=== PATIENT | female | born 1980 ===

== ENCOUNTER 2016-10-21 16:35 | Emergency (ER) | payer OTHER ==
[2016-10-21 17:00] VITALS: BP 105/66; PULSE 74; RESP 18; TEMP 98.2; O2SAT 99
--- NOTE | 2016-10-21 17:59 | ED PDOC ---
Lower Extremity Pain/Injury Time Seen by Provider: 10/21/16 17:19 Chief Complaint (Nursing): Lower Extremity Problem/Injury Chief Complaint (Provider): foot pain History Per: Patient History/Exam Limitations: no limitations Additional Complaint(s): 35yo F in ED for eval of foot pain (left side) x 5 days persistent without known acute injury made worse with walking and now progressing to heel with pins and needles. no swelling no skin break no calf pain. - Ankle/Foot Feet: 1 - foot pain Past Medical History Reviewed: Historical Data, Nursing Documentation, Vital Signs Vital Signs: Last Vital Signs Temp 98.2 F 10/21/16 16:57 Pulse 74 10/21/16 16:57 Resp 18 10/21/16 16:57 BP 105/66 10/21/16 16:57 Pulse Ox 99 10/21/16 16:57 - Medical History PMH: Asthma, Fibromyalgia, Kidney Stones, Chronic Kidney Disease - Surgical History Surgical History: Appendectomy - Family History Family History: States: Unknown Family Hx - Immunization History Hx Tetanus Toxoid Vaccination: Yes Hx Influenza Vaccination: No Hx Pneumococcal Vaccination: No - Home Medications Home Medications: Ambulatory Orders Medication Instructions Recorded Bacitracin Ointment [Bacitracin] 30 gm TOP BID #1 tube 11/21/15 Ciprofloxacin [Cipro] 1 tab PO BID #14 tab 11/21/15 - Allergies Allergies/Adverse Reactions: Allergies Allergy/AdvReac Type Severity Reaction Status Date / Time amoxil Allergy URTICARIA Uncoded 11/21/15 01:45 pcn Allergy URTICARIA Uncoded 11/21/15 01:45 Review of Systems ROS Statement: Except As Marked, All Systems Reviewed And Found Negative Musculoskeletal: Positive for: Foot Pain Physical Exam - Reviewed Nursing Documentation Reviewed: Yes Vital Signs Reviewed: Yes - Physical Exam Appears: Positive for: Well, Non-toxic, No Acute Distress Head Exam: Positive for: ATRAUMATIC, NORMAL INSPECTION, NORMOCEPHALIC Cardiovascular/Chest: Positive for: Regular Rate, Rhythm Respiratory: Positive for: CNT, Normal Breath Sounds Extremity: Positive for: Other (left foot: pain to plantar aspect of foot no swelling neurovasc intact no calf pain. ) Neurologic/Psych: Positive for: Alert, Oriented - ECG O2 Sat by Pulse Oximetry: 99 - Radiology X-Ray: Interpreted by Me (bony protusion noted to 3rd MTP) Medical Decision Making Medical Decision Making: pt desirae need podiatry f.u d/c with surgical shoe and harmon compression. advise dto take NSIAD for pain. ad ice for pain Disposition - Clinical Impression Clinical Impression: Bony spur - Patient ED Disposition Is Patient to be Admitted: No Counseled Patient/Family Regarding: Studies Performed, Diagnosis, Need For Followup - Disposition Referrals: Podiatry Clinic [Outside] Disposition: Routine/Home Disposition Time: 18:01 Condition: STABLE Instructions: Heel Spur (ED), Plantar Fasciitis (ED)
--- NOTE | 2016-10-21 18:35 | RAD ---
PROCEDURE: Left Foot Radiographs. HISTORY: foot pain COMPARISON: None. FINDINGS: BONES: Normal. No fracture. JOINTS: Minor hallux valgus deformity. There appears to be some minor medial soft tissue swelling at the level of the head of the 1st metatarsal and 1st MTP joint. . SOFT TISSUES: Normal. OTHER FINDINGS: None. IMPRESSION: No evidence of acute displaced fracture nor dislocation. Minor hallux valgus deformity with minor medial soft tissue swelling at the level of the head of the 1st metatarsal and 1st MTP joint. If symptoms persist or occult fracture suspected clinically consider repeat radiographs 5-10 days as most fractures should become radiographically evident this timeframe. Alternatively, if pain persist MRI could be obtained.
== END 2016-10-21 18:03 | disposition home or self-care (01) ==
LOC: H.ER 16:35
DX: M25.775 Osteophyte, left foot (principal); M79.7 Fibromyalgia; N18.9 Chronic kidney disease, unspecified; Z88.0 Allergy status to penicillin